=== PATIENT | female | born 1935 | race Caucasian/White ===

== ENCOUNTER 2017-02-13 07:28 | Observation (INO) | payer OTHER ==
[2017-02-13 08:18] LABS: BASO # 0.1 K/uL (0.0-0.2); BASO % 0.6 % (0.0-2.0); EOS # 0.1 K/uL (0.0-0.7); EOS % 1.1 % (0.0-4.0); HEMATOCRIT 38.9 % (34.0-47.0); LYMPH # 2.2 K/uL (1.0-4.3); LYMPH % 23.3 % (20.0-40.0); MEAN CELL VOLUME 92.5 fL (81.0-99.0); MEAN CORPUSCULAR HEMOGLOBIN 30.9 pg (27.0-31.0); MEAN CORPUSCULAR HGB CONC 33.4 g/dL (33.0-37.0); MONO # 0.7 K/uL (0.0-0.8); MONO % 7.7 % (0.0-10.0); RED CELL DISTRIBUTION WIDTH 12.9 % (11.5-14.5); WHITE BLOOD COUNT 9.5 K/uL (4.8-10.8)
[2017-02-13 08:25] LABS: CHLORIDE 98 mmol/L (98-107); POTASSIUM 3.6 mmol/L (3.6-5.2); SODIUM 137 mmol/L (132-148)
[2017-02-13 08:27] LABS: AST/SGOT 18 U/L (14-36); BILIRUBIN,TOTAL 1.2 mg/dL (0.2-1.3); CARBON DIOXIDE 26 mmol/L (22-30); GFR AFRICAN-AMERICAN > 60
[2017-02-13 08:28] LABS: ALB/GLOB RATIO 1.5 (1.0-2.1); ALKALINE PHOSPHATASE 79 U/L (38-126); ALT/SGPT 22 U/L (9-52); BLOOD UREA NITROGEN 25 mg/dL (7-17); GLUCOSE,RANDOM 116 mg/dL (65-105); TOTAL PROTEIN 7.2 g/dL (6.3-8.3)
--- NOTE | 2017-02-13 08:52 | CT ---
PROCEDURE: CT HEAD WITHOUT CONTRAST. HISTORY: dizzness COMPARISON: None available. TECHNIQUE: Axial computed tomography images were obtained through the head/brain without intravenous contrast. Radiation dose: Total exam DLP = 791.21 mGy-cm. This CT exam was performed using one or more of the following dose reduction techniques: Automated exposure control, adjustment of the mA and/or kV according to patient size, and/or use of iterative reconstruction technique. FINDINGS: HEMORRHAGE: Hyperintense oval-shaped lesion seen at the midline in the frontal region measures 21 x 14.1 millimeter. Findings could represent hemorrhage versus hemorrhagic mass. BRAIN: No mass effect or edema. No atrophy or chronic microvascular ischemic changes. VENTRICLES: Unremarkable. No hydrocephalus. CALVARIUM: Unremarkable. PARANASAL SINUSES: Small air-fluid levels seen in the right sphenoid sinus. MASTOID AIR CELLS: Unremarkable as visualized. No inflammatory changes. OTHER FINDINGS: None. IMPRESSION: High attenuation oval-shaped lesion seen at the midline in the frontal lesion measures 2.1 x 1.5 centimeter may represent a hemorrhagic mass versus less likely focal hemorrhage. Further assessment by MRI is suggested.
[2017-02-13 09:00] LABS: RBC URINE 7 /hpf (0-3); URINE BILIRUBIN NEGATIVE (NEGATIVE); URINE BLOOD 1+ (NEGATIVE); URINE COLOR Yellow (YELLOW); URINE GLUCOSE (UA) NORMAL (Normal); URINE KETONE NEGATIVE (NEGATIVE); URINE LEUKOCYTE ESTERASE NEG Leu/uL (Negative); URINE PROTEIN NEGATIVE (NEGATIVE); URINE UROBILINOGEN NORMAL mg/dL (0.2-1.0); WBC URINE 1 /hpf (0-5)
--- NOTE | 2017-02-13 10:19 | C.PDOC ---
History Of Present Illness 81-year-old female, presents to the emergency department accompanied by son who is acting as historian, with complaints of dizziness. Patient woke up this morning and had a few episodes of dizziness, when turning her head to the right. States dizziness lasts a few seconds and resolves on its own. Patient states she has had the dizziness intermittently over the past few years. Last episode was last year, she took Antivert for a few days with relief. Denies nausea/vomiting, weakness/numbness, chest pain, headache or any other associated symptoms. No other complaints at this time. Time Seen by Provider: 02/13/17 07:42 Chief Complaint (Nursing): Dizziness/Lightheaded History Per: Patient History/Exam Limitations: no limitations Onset/Duration Of Symptoms: Days Current Symptoms Are (Timing): Still Present Past Medical History Reviewed: Historical Data, Nursing Documentation, Vital Signs Vital Signs: Last Vital Signs Temp 98.2 F 02/13/17 11:47 Pulse 78 02/13/17 11:26 Resp 16 02/13/17 11:26 BP 131/58 L 02/13/17 11:26 Pulse Ox 97 02/13/17 11:26 - Medical History PMH: Anxiety, Arthritis, Bronchitis, HTN, Hypercholesterolemia Surgical History: Cholecystectomy Family History: States: Unknown Family Hx - Social History Hx Alcohol Use: No Hx Substance Use: No - Immunization History Hx Influenza Vaccination: Yes Review Of Systems Except As Marked, All Systems Reviewed And Found Negative. Constitutional: Negative for: Fever, Chills Cardiovascular: Negative for: Chest Pain Respiratory: Negative for: Shortness of Breath Gastrointestinal: Negative for: Nausea, Vomiting Neurological: Positive for: Dizziness. Negative for: Weakness, Numbness, Headache Physical Exam - Physical Exam Appears: Non-toxic, No Acute Distress Skin: Warm, Dry, No Rash Head: Atraumatic Eye(s): bilateral: Normal Inspection, PERRL, EOMI Nose: Normal Throat: Normal Neck: Normal Cardiovascular: Rhythm Regular Respiratory: Normal Breath Sounds Gastrointestinal/Abdominal: Normal Exam Back: Normal Inspection Extremity: Normal ROM ED Course And Treatment - Laboratory Results Result Diagrams: 02/13/17 08:12 02/13/17 08:12 ECG: Interpreted By Me, Viewed By Me ECG Interpretation: No Acute Changes Interpretation Of ECG: Arrhythmia Rate From EC O2 Sat by Pulse Oximetry: 95 - Radiology CXR: Interpreted by Me CXR Interpretation: Yes: No Acute Disease - CT Scan/US head Other Rad Studies (CT/US): Radiology Report Reviewed CT/US Interpretation: IMPRESSION: High attenuation oval-shaped lesion seen at the midline in the frontal lesion measures 2.1 x 1.5 centimeter may represent a hemorrhagic mass versus less likely focal hemorrhage. Further assessment by MRI is suggested. Medical Decision Making Medical Decision Making: Pt remained stable in the ED, Post CT MRI ordered however not avaible at this time No indication of acute CVA, Results of CT discussed with pt and family ie "mass" no edema around lesion no focal signs. After discussion plan is observation for MRI in am Discussed with dr Castellano who agrees wiht plan Disposition Counseled Patient/Family Regarding: Studies Performed, Diagnosis, Need For Followup - Disposition Disposition: HOSPITALIZED Disposition Time: 09:50 Condition: FAIR - Clinical Impression Clinical Impression: Dizziness, Frontal mass of brain - Scribe Statement The provider has reviewed the documentation as recorded by the Sarayibchasity Smith All medical record entries made by the Sarayibchasity were at my direction and personally dictated by me. I have reviewed the chart and agree that the record accurately reflects my personal performance of the history, physical exam, medical decision making, and the department course for this patient. I have also personally directed, reviewed, and agree with the discharge instructions and disposition. Decision To Admit - Pt Status Changed To: Hospital Disposition Of: Observation - . Bed Request Type: Regular Admitting Physician: Marianela Castellano Patient Diagnosis: Dizziness, Frontal mass of brain
--- NOTE | 2017-02-13 10:37 | CP.PCM.HP ---
<Natasha Bunn - Last Filed: 02/13/17 10:59> History of Present Illness - History of Present Illness History of Present Illness: CC: "I was very dizzy" HPI: Patient is 81 year old female with PMHx of HTN, arthritis, cataracts and hypertriglyceridemia presents with complaint of dizziness. Patient states that last night she started to experience dizziness while she was in bed. The dizziness was exacerbated when she would turn her head to the right side. She called for her son who was in the house and went to bed after the dizziness improved. The patient lives in [place] and is currently visiting her son and his family in [place]. Patient states that throughout the night she kept experiencing dizziness and this morning she was also dizzy so her son brought her to the ED. The patient states that she has had several episodes of dizziness 2-3 years ago but they resolved. Patient denies syncope, loss of consciousness, or recent head trauma. All other ROS are currently negative: Denies fever, chills , recent illness, chest pain, shortness of breath, palpitations, dysuria, hematuria, abdominal pain, diarrhea, constipation, focal weakness, change in vision, blurry vision, tinnitus, sore throat, headache, numbness/tingling in extremities, cough, and abnormal gait. PMHx: HTN, arthritis, cataracts and hypertriglyceridemia Surgical Hx: cholecystectomy Family Hx: parents of natural causes (no family hx of DM, CAD, or CVA) Social Hx: Denies EtOH use, denies tobacco use, denies illicit drug use; lives in [place] Allergies: Sulfa drugs (tremors/rash) Present on Admission - Present on Admission Any Indicators Present on Admission: No Review of Systems - Constitutional Constitutional: As Per HPI. absent: Chills, Fever - EENT Eyes: As Per HPI. absent: Blurred Vision, Change in Vision, Loss of Vision Ears: As Per HPI, Dizziness. absent: Tinnitus Nose/Mouth/Throat: As Per HPI. absent: Sore Throat - Cardiovascular Cardiovascular: As Per HPI. absent: Chest Pain, Chest Pain at Rest, Diaphoresis , Dyspnea, Lightheadedness, Palpitations, Pedal Edema - Respiratory Respiratory: As Per HPI. absent: Cough, Dyspnea, Hemoptysis, Wheezing, Chest Congestion - Gastrointestinal Gastrointestinal: As Per HPI. absent: Abdominal Pain, Bloating, Diarrhea, Nausea - Genitourinary Genitourinary: As Per HPI. absent: Change in Urinary Stream, Difficulty Urinating, Dysuria, Hematuria, Pyuria - Musculoskeletal Musculoskeletal: As Per HPI. absent: Abnormal Gait, Back Pain, Muscle Weakness , Neck Pain, Numbness, Tingling - Integumentary Integumentary: As Per HPI. absent: New Lesions, Rash - Neurological Neurological: As Per HPI, Dizziness. absent: Abnormal Gait, Abnormal Movements , Abnormal Speech, Confusion, Numbness, Frequent Falls, Headaches, Lack of Coordination, Loss of Vision, Syncope, Tingling, Tremor, Vertigo, Weakness - Psychiatric Psychiatric: As Per HPI. absent: Anxiety, Depression Past Patient History - Past Social History Smoking Status: Never Smoked - CARDIAC Hx Hypercholesterolemia: Yes Hx Hypertension: Yes - PULMONARY Hx Bronchitis: Yes - NEUROLOGICAL Hx Neurological Disorder: Yes Hx Vertigo: Yes - MUSCULOSKELETAL/RHEUMATOLOGICAL Hx Arthritis: Yes - PSYCHIATRIC Hx Anxiety: Yes Hx Substance Use: No - SURGICAL HISTORY Hx Cholecystectomy: Yes - ANESTHESIA Hx Anesthesia: Yes Hx Anesthesia Reactions: No Meds Allergies/Adverse Reactions: Allergies Allergy/AdvReac Type Severity Reaction Status Date / Time Sulfa (Sulfonamide Allergy Verified 02/13/17 07:51 Antibiotics) Physical Exam - Constitutional Appears: Non-toxic, No Acute Distress - Head Exam Head Exam: ATRAUMATIC, NORMOCEPHALIC - Eye Exam Eye Exam: EOMI, Normal appearance, PERRL. absent: Nystagmus Pupil Exam: NORMAL ACCOMODATION, PERRL - ENT Exam ENT Exam: Mucous Membranes Moist, Normal Exam - Neck Exam Neck exam: Positive for: Normal Inspection. Negative for: Lymphadenopathy - Respiratory Exam Respiratory Exam: Clear to Auscultation Bilateral, NORMAL BREATHING PATTERN. absent: Accessory Muscle Use, Chest Wall Tenderness, Decreased Breath Sounds, Prolonged Expiratory Phase, Rales, Rhonchi, Wheezes, Respiratory Distress, Stridor - Cardiovascular Exam Cardiovascular Exam: REGULAR RHYTHM, RRR, +S1, +S2. absent: Bradycardia, Tachycardia, Diastolic murmur, Irregular Rhythm, Systolic Murmur - GI/Abdominal Exam GI & Abdominal Exam: Normal Bowel Sounds, Soft. absent: Distended, Firm, Guarding, Tenderness - Extremities Exam Extremities exam: Positive for: full ROM, normal inspection, pedal pulses present. Negative for: calf tenderness, pedal edema, tenderness - Back Exam Back exam: NORMAL INSPECTION. absent: CVA tenderness (L), CVA tenderness (R) - Neurological Exam Neurological exam: Alert, CN II-XII Intact, Oriented x3 - Expanded Neurological Exam Expanded Patient oriented to: person, place, time Cranial nerves: EOM's Intact: Normal, Facial Palsey w/Forehead Movement: Normal , Facial Palsey w/o Forehead Movement: Normal, Facial Sensation: Normal, Nystagmus: Normal, Tongue Deviation: Normal Ataxia: No Cerebellar Function: Finger to Nose: Normal Upper motor neuron: Babinski Sign: Normal Sensory exam: Lower Extremity Light Touch: Normal, Upper Extremity Light Touch: Normal Neuro motor strength exam: Left Upper Extremity: 5, Right Upper Extremity: 5, Left Lower Extremity: 5, Right Lower Extremity: 5 Coma Scale Eye Opening: SPONTANEOUS Coma Scale Motor Response: OBEYS COMMANDS Coma Scale Verbal: Oriented Coma Scale Total: 15 - Psychiatric Exam Psychiatric exam: Normal Affect, Normal Mood - Skin Skin Exam: Dry, Intact, Normal Color, Warm Results - Vital Signs Recent Vital Signs: Last Vital Signs Temp 99 F 02/13/17 07:40 Pulse 83 02/13/17 07:40 Resp 16 02/13/17 07:40 BP 169/75 H 02/13/17 07:40 Pulse Ox 95 02/13/17 10:20 - Labs Result Diagrams: 02/13/17 08:12 02/13/17 08:12 Assessment & Plan - Assessment and Plan (Free Text) Assessment: 1. Cerebral hemorrhagic mass * Patient neurologically intact * CT head- Hyperintense oval-shaped lesion seen at the midline in the frontal region measures 21 x 14.1 millimeter. Findings could represent hemorrhage versus hemorrhagic mass. * Neurologist Dr Salazar consulted- help appreciated. * f/u CTA head/neck * f/u MRI Brain tomorrow morning * f/u HgA1C, lipid panel, TSH * Fall risk for dizziness 2. HTN * Tele/obs * Strict BP control: keep SBP in 130s range * Continue home meds: Dyazide 25-37.5mg PO daily, Lopressor 50mg PO BID, Norvasc 5mg PO daily * Monitor vitals q4h and adjust meds as needed 3. Hypertriglyceridemia * f/u lipid panel * Continue home med Lopid 600mg PO daily 4. Prophylactic measures * Chemical anticoagulation contraindicated due to hemorrhage * Pepcid 20mg PO BID * SCDs * PT/OT evaluation <Jian Reynolds - Last Filed: 02/13/17 15:24> Results - Vital Signs Recent Vital Signs: Last Vital Signs Temp 98.2 F 02/13/17 11:47 Pulse 78 02/13/17 11:26 Resp 16 02/13/17 11:26 BP 131/58 L 02/13/17 11:26 Pulse Ox 97 02/13/17 11:26 - Labs Result Diagrams: 02/13/17 08:12 02/13/17 08:12 Labs: Laboratory Results - last 24 hr 02/13/17 02/13/17 10:47 10:55 PT 11.9 INR 1.1 APTT 32 Triglycerides 123 Cholesterol 180 LDL Cholesterol Direct 120 HDL Cholesterol 38 TSH 3rd Generation 2.30 Attending/Attestation - Attestation I have personally seen and examined this patient.: Yes I have fully participated in the care of the patient.: Yes I have reviewed all pertinent clinical information: Yes Notes (Text): 02/13/17 14:24 Patient was seen and examined at bedside with the resident at the time of admission At this time patient denies any dizziness. CT scan of the head report reviewed. Patient will need further workup. Discussed by the resident with the neurologist. Patient will need CT angiogram of the brain. Patient will also need an MRI of the brain. I discussed the plan of care with the resident and agree with the above history and physical and assessment/plan by the resident.
[2017-02-13 10:56] LABS: INR 1.1
[2017-02-13 11:34] LABS: THYROID STIMULATING HORMONE 2.3 mIU/L (0.46-4.68)
--- NOTE | 2017-02-13 11:58 | RAD ---
HISTORY: dizzness COMPARISON: No prior. TECHNIQUE: Chest PA and lateral FINDINGS: LUNGS: No active pulmonary disease. PLEURA: No significant pleural effusion identified. No pneumothorax apparent. CARDIOVASCULAR: Normal. OSSEOUS STRUCTURES: No significant abnormalities. VISUALIZED UPPER ABDOMEN: Normal. OTHER FINDINGS: None. IMPRESSION: No active disease.
[2017-02-13] MEDS ORDERED: Iodixanol 320 MG/ML 100 ML BOTTLE IV ONE ×2 (12:43→12:58)
--- NOTE | 2017-02-13 14:52 | CT ---
PROCEDURE: CT Angiography of the Brain. HISTORY: brain hemorrhage COMPARISON: VS CT head without contrast dated 02/13/2017 TECHNIQUE: CT angiography of the intracranial arteries was performed. Coronal and sagittal maximum intensity projection reformated images were generated. This CT exam was performed using one or more of the following dose reduction techniques: Automated exposure control, adjustment of the mA and/or kV according to patient size, and/or use of iterative reconstruction technique. FINDINGS: CTA of the neck. No evidence of stenosis in the common and internal carotid arteries at the neck. The visualized portion of the aortic arch is normal in caliber. The subclavian arteries are patent. The left vertebral artery is small in size. Mild atherosclerotic disease seen. Moderate to mildly severe degenerative changes at the cervical spine associated with large osteophyte formation. There is mild anterior subluxation of C7 relative to T1. INTERNAL CEREBRAL ARTERIES: Unremarkable. The skull base, petrous, cavernous and supraclinoid segments are bilaterally widely patient. ANTERIOR CEREBRAL ARTERIES: Unremarkable. A1 and A2 segments are widely patent. Smaller distal branches unremarkable, as visualized. MIDDLE CEREBRAL ARTERIES: Unremarkable. M1 and M2 segments are widely patent. Perisylvian branches grossly symmetric. POSTERIOR CIRCULATION: Basilar Artery: Unremarkable. Distal Vertebral Arteries: Unremarkable. Posterior Cerebral Arteries: The Small size left P1 is not visualized. . Prominent left posterior communicated artery continues as left posterior cerebral artery. Posterior Inferior Cerebellar Arteries: Unremarkable. ANEURYSM/ VASCULAR MALFORMATIONS: None. OTHER FINDINGS: Mild mucosal thickening in the right sphenoid sinus. IMPRESSION: No evidence of hemodynamically significant stenosis at the carotid arteries in the neck. Small size left vertebral artery. The left P1 is not visualized. Left posterior communicated artery is prominent in size continuous as left posterior cerebral artery. Otherwise ,no evidence of significant stenosis in the intracranial arteries.
--- NOTE | 2017-02-13 20:29 | CP.PCM.CON ---
History of Present Illness - History of Present Illness History of Present Illness: Mrs. Bal is an 81-year-old woman with a past medical history of dyslipidemia and hypertension, who presented to the ED for complaints of dizziness. She states that last night, she was having trouble sleeping and her son gave her Benadryl. She attributed her dizziness to the Benadryl, but she was brought to the ED. A CT scan of the head was done and showed a midline hemorrhagic appearing mass without much mass effect or edema. The patient denied headache, nausea, vomiting, visual changes, weakness, sensory changes, balance problems or urinary/bowel incontinence. She said that she feels well and did not have any significant complaints of dizziness at this time. Review of Systems - Review of Systems All systems: reviewed and no additional remarkable complaints except Past Patient History - Past Social History Smoking Status: Never Smoked - CARDIAC Hx Hypercholesterolemia: Yes Hx Hypertension: Yes - PULMONARY Hx Bronchitis: Yes - NEUROLOGICAL Hx Neurological Disorder: Yes Hx Vertigo: Yes - MUSCULOSKELETAL/RHEUMATOLOGICAL Hx Arthritis: Yes - PSYCHIATRIC Hx Anxiety: Yes Hx Substance Use: No - SURGICAL HISTORY Hx Cholecystectomy: Yes - ANESTHESIA Hx Anesthesia: Yes Hx Anesthesia Reactions: No Meds Allergies/Adverse Reactions: Allergies Allergy/AdvReac Type Severity Reaction Status Date / Time Sulfa (Sulfonamide Allergy Verified 02/13/17 07:51 Antibiotics) - Medications Medications: Current Medications Amlodipine Besylate (Norvasc) 5 mg PO DAILY [facility] Last Admin: 02/13/17 11:42 Dose: 5 mg Famotidine (Pepcid) 20 mg PO BID [facility] Last Admin: 02/13/17 17:25 Dose: 20 mg Gemfibrozil (Lopid) 600 mg PO DAILY [facility] Last Admin: 02/13/17 11:41 Dose: 600 mg Metoprolol Tartrate (Lopressor) 50 mg PO BID [facility] Last Admin: 02/13/17 17:25 Dose: 50 mg Triamterene/HCTZ (Dyazide 25 Mg-37.5 Mg) 1 cap PO DAILY [facility] Physical Exam - Constitutional Appears: Well - Head Exam Head Exam: ATRAUMATIC, NORMAL INSPECTION, NORMOCEPHALIC - Eye Exam Eye Exam: EOMI, Normal appearance, PERRL - ENT Exam ENT Exam: Mucous Membranes Moist, Normal Exam - Neck Exam Neck exam: Positive for: Normal Inspection - Respiratory Exam Respiratory Exam: Clear to Auscultation Bilateral, NORMAL BREATHING PATTERN - Cardiovascular Exam Cardiovascular Exam: REGULAR RHYTHM, +S1, +S2 - GI/Abdominal Exam GI & Abdominal Exam: Normal Bowel Sounds, Soft. absent: Tenderness - Neurological Exam Neurological exam: Alert, CN II-XII Intact, Normal Gait, Oriented x3, Reflexes Normal - Expanded Neurological Exam Expanded Patient oriented to: person, place, time Cranial nerves: EOM's Intact: Normal, Facial Sensation: Normal, Nystagmus: Normal Ataxia: No Cerebellar Function: Finger to Nose: Normal, Heel to [place]: Normal, Romberg: Normal Upper motor neuron: Babinski Sign: Normal Sensory exam: Lower Extremity 2 Point Discrimination: Normal, Lower Extremity Light Touch: Normal, Lower Extremity Pin Prick: Normal, Lower Extremity Temperature: Normal, Upper Extremity 2 Point Discrimination: Normal, Upper Extremity Light Touch: Normal, Upper Extremity Pin Prick: Normal, Upper Extremity Temperature: Normal Neuro motor strength exam: Left Upper Extremity: 5, Right Upper Extremity: 5, Left Lower Extremity: 5, Right Lower Extremity: 5 DTR: Achilles Tendon Left: 2+, Achilles Tendon Right: 2+, Bicep Left: 2+, Bicep Right: 2+, Brachioradialis Left: 2+, Brachioradialis Right: 2+, Patellar Left: 2 +, Patellar Right: 2+, Tricep Left: 2+, Tricep Right: 2+ - Psychiatric Exam Psychiatric exam: Normal Affect, Normal Mood - Skin Skin Exam: Dry, Intact, Normal Color, Warm Results - Vital Signs Recent Vital Signs: Last Vital Signs Temp 98.7 F 02/13/17 16:00 Pulse 84 02/13/17 16:00 Resp 20 02/13/17 16:00 BP 134/71 02/13/17 16:00 Pulse Ox 95 02/13/17 17:39 - Labs Result Diagrams: 02/13/17 08:12 02/13/17 08:12 Labs: Laboratory Results - last 24 hr 02/13/17 02/13/17 10:47 10:55 PT 11.9 INR 1.1 APTT 32 Triglycerides 123 Cholesterol 180 LDL Cholesterol Direct 120 HDL Cholesterol 38 TSH 3rd Generation 2.30 - Imaging and Cardiology CT scan - head Status: Image reviewed by me, Report reviewed by me (CT of the head showed a midline mass with hyperdensity and possible hemorrhagic products. There was no mass effect and it appeared stable. The CTA of the head and neck did not show any anuerysm, AVM or cavernous malformation.) Assessment & Plan (1) Dizziness Assessment and Plan: The appearance of the mass and lack of vascular involvement on the CTA is most consistent with either a meningioma with hemorrhagic components, or another hemorrhagic mass. The patient is clinically well and does not have any significant complaints at this time. I recommend continuing BP support to maintain normotension, avoid antiplatelet or anticoagulants for now (use compression stockings for DVT Px), neuro-checks Q4 hours, PT/OT (if needed), obtain an MRI of the brain with and without contrast for further evaluation and depending on the results, consider consulting neurosurgery for follow-up. Status: Acute Priority: High (2) Frontal mass of brain Status: Acute
[2017-02-14 07:30] LABS: BASO % 0.5 % (0.0-2.0); EOS # 0.1 K/uL (0.0-0.7); EOS % 1.8 % (0.0-4.0); HEMATOCRIT 36.3 % (34.0-47.0); LYMPH # 2.1 K/uL (1.0-4.3); LYMPH % 27.9 % (20.0-40.0); MEAN CELL VOLUME 92.4 fL (81.0-99.0); MEAN CORPUSCULAR HEMOGLOBIN 31.1 pg (27.0-31.0); MEAN CORPUSCULAR HGB CONC 33.7 g/dL (33.0-37.0); MEAN PLATELET VOLUME 9.5 fL (7.2-11.7); MONO # 0.7 K/uL (0.0-0.8); MONO % 10.1 % (0.0-10.0); RED CELL DISTRIBUTION WIDTH 13.1 % (11.5-14.5); WHITE BLOOD COUNT 7.4 K/uL (4.8-10.8)
--- NOTE | 2017-02-14 07:46 | CP.PCM.PN ---
<NailaCarolina - Last Filed: 02/14/17 15:17> Subjective - Date & Time of Evaluation Date of Evaluation: 02/14/17 Time of Evaluation: 09:15 - Subjective Subjective: PGY1 Medicine note for Dr. Barber Pt seen and examined at bedside. Nursing reports no adverse events overnight. Today, pt is resting comfortably and states she has no pain. She states that she feels dizzy when she moves her head or when she gets out of bed. She says that the dizziness feels more like the room is spinning than light headedness. She states that she never feels like she will pass out or fall down and that she usually lays down when the dizziness is bad and that helps. Pt denies headache, chest pain, palpitations, SOB, cough, abdominal pain, nausea, vomiting , diarrhea or constipation, dysuria, pain/swelling in her legs bilaterally, focal numbness/tingling. She disclosed that 1 year ago she was given an Rx for antivert by her PMD which she has no longer been taking. Objective - Vital Signs/Intake and Output Vital Signs (last 24 hours): Temp Pulse Resp BP Pulse Ox 99.4 F 80 20 129/67 95 02/14/17 00:17 02/14/17 00:17 02/14/17 00:17 02/14/17 00:17 02/14/17 00:17 Intake and Output: 02/14/17 02/14/17 06:59 18:59 Intake Total 200 Balance 200 - Medications Medications: Current Medications Amlodipine Besylate (Norvasc) 5 mg PO DAILY [facility] Last Admin: 02/13/17 11:42 Dose: 5 mg Famotidine (Pepcid) 20 mg PO BID [facility] Last Admin: 02/13/17 17:25 Dose: 20 mg Gemfibrozil (Lopid) 600 mg PO DAILY [facility] Last Admin: 02/13/17 11:41 Dose: 600 mg Metoprolol Tartrate (Lopressor) 50 mg PO BID [facility] Last Admin: 02/13/17 17:25 Dose: 50 mg Triamterene/HCTZ (Dyazide 25 Mg-37.5 Mg) 1 cap PO DAILY [facility] - Labs Labs: 02/14/17 07:12 PT 11.9 SECONDS (9.7-12.2) 02/13/17 10:55 INR 1.1 02/13/17 10:55 APTT 32 SECONDS (21-34) 02/13/17 10:55 - Constitutional Appears: Non-toxic, No Acute Distress - Head Exam Head Exam: NORMAL INSPECTION - Eye Exam Eye Exam: EOMI, Normal appearance, PERRL. absent: Conjunctival injection, Scleral icterus Pupil Exam: NORMAL ACCOMODATION - ENT Exam ENT Exam: Mucous Membranes Moist - Neck Exam Neck Exam: Normal Inspection. absent: Tenderness - Respiratory Exam Respiratory Exam: Clear to Ausculation Bilateral, NORMAL BREATHING PATTERN. absent: Accessory Muscle Use, Rales, Rhonchi, Wheezes, Respiratory Distress - Cardiovascular Exam Cardiovascular Exam: REGULAR RHYTHM, RRR, +S1, +S2 - GI/Abdominal Exam GI & Abdominal Exam: Soft, Normal Bowel Sounds. absent: Firm, Guarding, Rigid, Tenderness - Extremities Exam Extremities Exam: Normal Capillary Refill, Normal Inspection. absent: Pedal Edema, Tenderness - Back Exam Back Exam: NORMAL INSPECTION. absent: rash noted - Neurological Exam Neurological Exam: Alert, Awake, CN II-XII Intact, Oriented x3 - Psychiatric Exam Psychiatric exam: Normal Affect, Normal Mood - Skin Skin Exam: Dry, Intact, Normal Color, Warm Assessment and Plan - Assessment and Plan (Free Text) Assessment: 81 year old female with PMHx of HTN, arthritis, cataracts and hypertriglyceridemia presents with complaint of dizziness Plan: Cerebral hemorrhagic mass * Likely meningioma * Patient neurologically intact * CT head- Hyperintense oval-shaped lesion seen at the midline in the frontal region measures 21 x 14.1 millimeter. Findings could represent hemorrhage versus hemorrhagic mass. * CTA head/neck: no evidence of hemodynamically significant stenosis at the carotid A in the neck. Small size left vertebral artery. Left posterior communicated artery is prominent in size continuous as left posterior cerebral artery. no evidence of significant stenosis in intracranial arteries. * MRI Brain: elliptical shaped mass density within the interhemispheric fissure of near the vertex consistent with meningioma. The lesion does exert minimal mass effect on the adjacent cortical surfaces b/l. Mild chronic white matter ischemic changes. No evidence of acute hemorrhage or infarct. * HgA1C 5.6 * Lipid panel WNL * TSH 2.3 * Fall risk for dizziness * Neurologist Dr Salazar * Neurosurgery Dr Trammell Positional Vertigo * Meclizine 25mg po q6 PRN dizziness * f/u orthostatics HTN * Tele/obs * Strict BP control: keep SBP in 130s range * Dyazide 25-37.5mg PO daily * Lopressor 50mg PO BID * Norvasc 5mg PO daily * Monitor vitals q4h and adjust meds as needed Hypertriglyceridemia * f/u lipid panel * Lopid 600mg PO daily Prophylactic measures * Chemical anticoagulation contraindicated due to hemorrhage * Pepcid 20mg PO BID * SCDs * PT/OT evaluation * Heart healthy diet Plan discussed with Dr. Sunil Yoo PGY1 <Jet Barber - Last Filed: 03/18/17 13:22> Objective - Vital Signs/Intake and Output Vital Signs (last 24 hours): Temp Pulse Resp BP Pulse Ox 99 F 61 20 148/88 96 02/15/17 04:10 02/15/17 12:18 02/15/17 04:10 02/15/17 04:10 02/14/17 23:35 - Labs Labs: 02/15/17 07:40 02/15/17 07:40 PT 11.9 SECONDS (9.7-12.2) 02/13/17 10:55 INR 1.1 02/13/17 10:55 APTT 32 SECONDS (21-34) 02/13/17 10:55 Attending/Attestation - Attestation I have personally seen and examined this patient.: Yes I have fully participated in the care of the patient.: Yes I have reviewed all pertinent clinical information, including history, physical exam and plan: Yes Notes (Text): Patient Seen and examined with the resident. Agree with the resident's evaluation, assessment and plan. 81 year old female with PMHx of HTN, arthritis, cataracts and hypertriglyceridemia presents with complaint of dizziness Plan: Cerebral hemorrhagic mass Positional Vertigo
[2017-02-14 07:55] LABS: CHLORIDE 97 mmol/L (98-107)
[2017-02-14 07:56] LABS: POTASSIUM 3.6 mmol/L (3.6-5.2); SODIUM 136 mmol/L (132-148)
[2017-02-14 07:58] LABS: ALB/GLOB RATIO 1.3 (1.0-2.1); ALKALINE PHOSPHATASE 65 U/L (38-126); AST/SGOT 18 U/L (14-36); BILIRUBIN,TOTAL 0.9 mg/dL (0.2-1.3); BLOOD UREA NITROGEN 21 mg/dL (7-17); CARBON DIOXIDE 29 mmol/L (22-30); GFR AFRICAN-AMERICAN > 60; GLUCOSE,RANDOM 107 mg/dL (65-105); TOTAL PROTEIN 6.7 g/dL (6.3-8.3)
[2017-02-14 07:59] LABS: ALT/SGPT 21 U/L (9-52); CALCIUM 8.7 mg/dl (8.6-10.4)
[2017-02-14] MEDS ORDERED: Gadodiamide 287 MG/ML VIAL (15ML) IV ONE (10:01)
[2017-02-14] MEDS: hydroCHLOROthiazide-Triamterene 25 mg-37.5 mg Cap UD PO SCH (10:51)
--- NOTE | 2017-02-14 10:52 | MRI ---
PROCEDURE: MRI of the brain dated 02/14/2017 HISTORY: cerebral hemorrhagic mass COMPARISON: Comparison made with CT scan brain dated 02/13/2017 TECHNIQUE: Multiplanar, multisequence MR images of the brain were obtained before and following intravenous injection of approximately 13 cc of Omniscan contrast material. . FINDINGS: HEMORRHAGE: No evidence of acute parenchymal, subarachnoid or extra-axial hemorrhage. No definitive evidence of hemosiderin deposition identified within brain the substance of the brain or cortical surfaces on gradient echo weighted sequence DWI: No evidence of an acute or early subacute infarction. BRAIN PARENCHYMA: Re- demonstrated is a homogeneously enhancing elliptical shaped mass density within the interhemispheric fissure near the vertex that measures approximately 17.7 AP x 17.1 cc x14.9 trans most consistent with a meningioma. The lesion does exert minimal mass effect on the adjacent cerebral cortices bilaterally. Mild diffuse/confluent periventricular white matter ischemic changes are present. ENHANCEMENT: No additional enhancing extra-axial masses or collections. No enhancing parenchymal lesions. VENTRICLES: Mild age-appropriate volume loss. CRANIUM: No grossly calvarial abnormalities. ORBITS: Orbits and contents grossly unremarkable. PARANASAL SINUSES/MASTOIDS: Minor mucosal thickening seen right chamber sphenoid sinus and several ethmoid air cells. VASCULAR SYSTEM: Visualized major vascular flow voids at skull base are patent. OTHER FINDINGS: None . IMPRESSION: Re- demonstrated is elliptical shaped mass density within the interhemispheric fissure of near the vertex consistent with meningioma. The lesion does exert minimal mass effect on the adjacent cortical surfaces bilaterally. Mild chronic white matter ischemic changes. No evidence of acute intracranial hemorrhage or infarct.
[2017-02-14 16:07] VITALS: O2SAT 96
[2017-02-15 03:13] VITALS: RESP 20
[2017-02-15 04:29] VITALS: BP 148/88; TEMP 99
--- NOTE | 2017-02-15 07:02 | CP.PCM.PN ---
Objective - Vital Signs/Intake and Output Vital Signs (last 24 hours): Temp Pulse Resp BP Pulse Ox 99 F 75 20 148/88 96 02/15/17 04:10 02/15/17 04:10 02/15/17 04:10 02/15/17 04:10 02/14/17 23:35 Intake and Output: 02/15/17 02/15/17 06:59 18:59 Output Total 100 Balance -100 - Medications Medications: Current Medications Amlodipine Besylate (Norvasc) 5 mg PO DAILY [facility] Last Admin: 02/14/17 10:50 Dose: 5 mg Famotidine (Pepcid) 20 mg PO BID [facility] Last Admin: 02/14/17 18:01 Dose: 20 mg Gemfibrozil (Lopid) 600 mg PO DAILY [facility] Last Admin: 02/14/17 10:51 Dose: 600 mg Meclizine HCl (Antivert) 25 mg PO Q6 PRN PRN Reason: Dizziness Metoprolol Tartrate (Lopressor) 50 mg PO BID [facility] Last Admin: 02/14/17 18:02 Dose: 50 mg Triamterene/HCTZ (Dyazide 25 Mg-37.5 Mg) 1 cap PO DAILY [facility] Last Admin: 02/14/17 10:51 Dose: 1 cap - Labs Labs: 02/14/17 07:12 02/14/17 07:12 PT 11.9 SECONDS (9.7-12.2) 02/13/17 10:55 INR 1.1 02/13/17 10:55 APTT 32 SECONDS (21-34) 02/13/17 10:55
[2017-02-15 08:20] LABS: BASO % 0.4 % (0.0-2.0); EOS # 0.2 K/uL (0.0-0.7); EOS % 2.6 % (0.0-4.0); HEMATOCRIT 37.6 % (34.0-47.0); LYMPH # 2.3 K/uL (1.0-4.3); LYMPH % 30.5 % (20.0-40.0); MEAN CELL VOLUME 92.8 fL (81.0-99.0); MEAN CORPUSCULAR HEMOGLOBIN 30.9 pg (27.0-31.0); MEAN CORPUSCULAR HGB CONC 33.2 g/dL (33.0-37.0); MEAN PLATELET VOLUME 9.3 fL (7.2-11.7); MONO # 0.8 K/uL (0.0-0.8); MONO % 10.2 % (0.0-10.0); RED CELL DISTRIBUTION WIDTH 12.9 % (11.5-14.5); WHITE BLOOD COUNT 7.5 K/uL (4.8-10.8)
[2017-02-15 08:29] LABS: CHLORIDE 99 mmol/L (98-107); POTASSIUM 3.7 mmol/L (3.6-5.2); SODIUM 137 mmol/L (132-148)
[2017-02-15 08:31] LABS: AST/SGOT 20 U/L (14-36); BILIRUBIN,TOTAL 0.8 mg/dL (0.2-1.3); CARBON DIOXIDE 27 mmol/L (22-30); GFR AFRICAN-AMERICAN > 60
[2017-02-15 08:32] LABS: ALB/GLOB RATIO 1.3 (1.0-2.1); ALKALINE PHOSPHATASE 62 U/L (38-126); ALT/SGPT 18 U/L (9-52); BLOOD UREA NITROGEN 24 mg/dL (7-17); GLUCOSE,RANDOM 110 mg/dL (65-105); TOTAL PROTEIN 6.9 g/dL (6.3-8.3)
[2017-02-15 08:33] LABS: CALCIUM 8.5 mg/dl (8.6-10.4); MAGNESIUM 1.9 mg/dL (1.6-2.3); PHOSPHOROUS 4.2 mg/dL (2.5-4.5)
--- NOTE | 2017-02-15 09:45 | CARD ---
APPROVED REPORT EKG Measurement Heart Cooc13SBUS MA 160P-1 [id number] <Conclusion> Sinus rhythm with marked sinus arrhythmia Nonspecific ST abnormality Abnormal ECG
[2017-02-15] MEDS: hydroCHLOROthiazide-Triamterene 25 mg-37.5 mg Cap UD PO SCH (10:06)
--- NOTE | 2017-02-15 10:57 | CP.PCM.DIS ---
<Carolina Yoo - Last Filed: 02/15/17 17:21> Provider - Provider Date of Admission: 02/13/17 09:54 Attending physician: Jet Barber MD Consults: Dr. Salazar Neurology Dr. Quinonez Neurosurgery Time Spent in preparation of Discharge (in minutes): 45 Hospital Course - Lab Results Lab Results: Most Recent Lab Values WBC 7.5 K/uL (4.8-10.8) 02/15/17 07:40 RBC 4.05 Mil/uL (3.80-5.20) 02/15/17 07:40 Hgb 12.5 g/dL (11.0-16.0) 02/15/17 07:40 Hct 37.6 % (34.0-47.0) 02/15/17 07:40 MCV 92.8 fL (81.0-99.0) 02/15/17 07:40 MCH 30.9 pg (27.0-31.0) 02/15/17 07:40 MCHC 33.2 g/dL (33.0-37.0) 02/15/17 07:40 RDW 12.9 % (11.5-14.5) 02/15/17 07:40 Plt Count 248 K/uL (130-400) 02/15/17 07:40 MPV 9.3 fL (7.2-11.7) 02/15/17 07:40 Neut % (Auto) 56.3 % (50.0-75.0) 02/15/17 07:40 Lymph % (Auto) 30.5 % (20.0-40.0) 02/15/17 07:40 Miner % (Auto) 10.2 % (0.0-10.0) H 02/15/17 07:40 Eos % (Auto) 2.6 % (0.0-4.0) 02/15/17 07:40 Baso % (Auto) 0.4 % (0.0-2.0) 02/15/17 07:40 Neut # 4.2 K/uL (1.8-7.0) 02/15/17 07:40 Lymph # 2.3 K/uL (1.0-4.3) 02/15/17 07:40 Miner # 0.8 K/uL (0.0-0.8) 02/15/17 07:40 Eos # 0.2 K/uL (0.0-0.7) 02/15/17 07:40 Baso # 0.0 K/uL (0.0-0.2) 02/15/17 07:40 PT 11.9 SECONDS (9.7-12.2) 02/13/17 10:55 INR 1.1 02/13/17 10:55 APTT 32 SECONDS (21-34) 02/13/17 10:55 Sodium 137 mmol/L (132-148) 02/15/17 07:40 Potassium 3.7 mmol/L (3.6-5.2) 02/15/17 07:40 Chloride 99 mmol/L (98-107) 02/15/17 07:40 Carbon Dioxide 27 mmol/L (22-30) 02/15/17 07:40 Anion Gap 15 (10-20) 02/15/17 07:40 BUN 24 mg/dL (7-17) H 02/15/17 07:40 Creatinine 0.9 MG/DL (0.7-1.2) 02/15/17 07:40 Est GFR ( Amer) > 60 02/15/17 07:40 Est GFR (Non-Af Amer) 60 02/15/17 07:40 POC Glucose (mg/dL) 121 mg/dL (65-110) H 02/13/17 07:44 Random Glucose 110 mg/dL (65-105) H 02/15/17 07:40 Hemoglobin A1c 5.6 % (4.2-6.5) 02/13/17 10:47 Calcium 8.5 mg/dl (8.6-10.4) L 02/15/17 07:40 Phosphorus 4.2 mg/dL (2.5-4.5) 02/15/17 07:40 Magnesium 1.9 mg/dL (1.6-2.3) 02/15/17 07:40 Total Bilirubin 0.8 mg/dL (0.2-1.3) 02/15/17 07:40 AST 20 U/L (14-36) 02/15/17 07:40 ALT 18 U/L (9-52) 02/15/17 07:40 Alkaline Phosphatase 62 U/L (38-126) 02/15/17 07:40 Troponin I < 0.0120 ng/mL (0.00-0.120) 02/13/17 08:12 Total Protein 6.9 g/dL (6.3-8.3) 02/15/17 07:40 Albumin 3.9 g/dL (3.5-5.0) 02/15/17 07:40 Globulin 3.0 gm/dL (2.2-3.9) 02/15/17 07:40 Albumin/Globulin Ratio 1.3 (1.0-2.1) 02/15/17 07:40 Triglycerides 123 mg/dL (0-149) 02/13/17 10:47 Cholesterol 180 mg/dL (0-199) 02/13/17 10:47 LDL Cholesterol Direct 120 mg/dL (0-129) 02/13/17 10:47 HDL Cholesterol 38 mg/dL (30-70) 02/13/17 10:47 TSH 3rd Generation 2.30 mIU/L (0.46-4.68) 02/13/17 10:47 Urine Color Yellow (YELLOW) 02/13/17 08:43 Urine Clarity Clear (Clear) 02/13/17 08:43 Urine pH 6.0 (5.0-8.0) 02/13/17 08:43 Ur Specific Dresher 1.016 (1.003-1.030) 02/13/17 08:43 Urine Protein Negative mg/dL (NEGATIVE) 02/13/17 08:43 Urine Glucose (UA) Normal mg/dL (Normal) 02/13/17 08:43 Urine Ketones Negative mg/dL (NEGATIVE) 02/13/17 08:43 Urine Blood 1+ (NEGATIVE) H 02/13/17 08:43 Urine Nitrate Negative (NEGATIVE) 02/13/17 08:43 Urine Bilirubin Negative (NEGATIVE) 02/13/17 08:43 Urine Urobilinogen Normal mg/dL (0.2-1.0) 02/13/17 08:43 Ur Leukocyte Esterase Neg Billy/uL (Negative) 02/13/17 08:43 Urine WBC (Auto) 1 /hpf (0-5) 02/13/17 08:43 Urine RBC (Auto) 7 /hpf (0-3) H 02/13/17 08:43 Ur Squamous Epith Cells 2 /hpf (0-5) 02/13/17 08:43 - Hospital Course Hospital Course: Upon Admission: 81 year old female with PMHx of HTN, arthritis, cataracts and hypertriglyceridemia presents with complaint of dizziness. The dizziness was exacerbated when she would turn her head to the right side. Patient stated that throughout the night prior to admission she kept experiencing dizziness and the morning of it worsened and she came to the ER. Patient denies syncope, loss of consciousness, or recent head trauma. All other ROS negative. Patient was admitted to TELE floor. CT head showed hyperintense oval-shaped lesion seen at the midline in the frontal region measures 21 x 14.1 millimeter. Findings could represent hemorrhage versus hemorrhagic mass. Neurologist Dr. Salazar was consulted. CTA head/neck showed no evidence of hemodynamically significant stenosis at the carotid A in the neck. Small size left vertebral artery. Left posterior communicated artery is prominent in size continuous as left posterior cerebral artery. no evidence of significant stenosis in intracranial arteries. Patient had an MRI brain that showed elliptical shaped mass density within the interhemispheric fissure of near the vertex consistent with meningioma. The lesion does exert minimal mass effect on the adjacent cortical surfaces b/l. Mild chronic white matter ischemic changes. No evidence of acute hemorrhage or infarct. Neurologist Dr. Quinonez was consulted who deemed no surgical intervention. Patient was started on meclizine PRN and on the day of discharge her dizziness had resolved and she was deemed medically stable for discharge. 1) Meningioma: repeat MRI in 6 months and f/u with neurosurgery Dr. Quinonez 2) Positional vertigo: f/u with ENT outpatient and continue Meclizine PRN 3) HTN: continue home meds 4) Hypertriglyceridemia: continue home meds Upon Discharge: Patiet stable for discharge home as per hospitalist Dr. Barber, neurology Dr. Salazar, and neurosurgery Dr. Quinonez. Patient to resume home medications and to take following medications as prescribed: -Norvasc 5mg po daily Disp#30 -Gemfibrozil 600mg po daily Disp#30 -Meclizine 25mg po q6h prn dizziness Disp#120 -Lopressor 50mg po bid Disp#60 -Dyazide 25mg-37.5mg 1 cap po daily Disp#30 Patient to follow up with PMD within 1 week. Patient also recommended to follow up with an ENT specialist within 10 days and neurology within 2 weeks. Patient has also been recommended to follow up brain MRI in 6 months and with neurosurgery within 6 months. If symptoms persist or worsen patient to visit ED immediately. Instructions discussed in detail with patient who understands and agrees. Discharge Exam - Head Exam Head Exam: ATRAUMATIC, NORMAL INSPECTION, NORMOCEPHALIC - Eye Exam Eye Exam: EOMI, Normal appearance, PERRL. absent: Conjunctival injection, Scleral icterus Pupil Exam: NORMAL ACCOMODATION - ENT Exam ENT Exam: Mucous Membranes Moist - Neck Exam Neck exam: Full Rom, Normal Inspection - Respiratory Exam Respiratory Exam: Clear to PA & Lateral, NORMAL BREATHING PATTERN, UNREMARKABLE. absent: Accessory Muscle Use, Rales, Rhonchi, Wheezes - Cardiovascular Exam Cardiovascular Exam: REGULAR RHYTHM, RRR, +S1, +S2. absent: Systolic Murmur - GI/Abdominal Exam GI & Abdominal Exam: Normal Bowel Sounds, Soft. absent: Firm, Guarding, Rigid, Tenderness - Extremities Exam Extremities exam: normal capillary refill, normal inspection, pedal pulses present - Back Exam Back exam: NORMAL INSPECTION. absent: rash noted, tenderness - Neurological Exam Neurological exam: Alert, CN II-XII Intact, Normal Gait, Oriented x3 - Psychiatric Exam Psychiatric exam: Normal Affect, Normal Mood - Skin Skin Exam: Dry, Intact, Normal Color, Warm Discharge Plan - Discharge Medications Prescriptions: amLODIPine [Norvasc] 1 tab PO DAILY #30 Gemfibrozil 600 mg PO DAILY #30 Meclizine [Meclizine*] 25 mg PO Q6 PRN #120 tab PRN Reason: Dizziness Metoprolol Tartrate [Lopressor] 1 tab PO BID #60 Triamterene-Hctz 37.5-25 mg Tb 1 tab PO DAILY #30 - Follow Up Plan Condition: FAIR Disposition: HOME/ ROUTINE Instructions: Metoprolol (By mouth), Triamterene/Hydrochlorothiazide (By mouth) , Gemfibrozil (By mouth), Meclizine (By mouth), Amlodipine (By mouth), Heart Healthy Diet (DC), Hypertension (DC), Dizziness (GEN), Hyperlipidemia (DC) Additional Instructions: Patiet stable for discharge home as per hospitalist Dr. Barber, neurology Dr. Salazar, and neurosurgery Dr. Quinonez. Patient to resume home medications and to take following medications as prescribed: -Norvasc 5mg po daily Disp#30 -Gemfibrozil 600mg po daily Disp#30 -Meclizine 25mg po q6h prn dizziness Disp#120 -Lopressor 50mg po bid Disp#60 -Dyazide 25mg-37.5mg 1 cap po daily Disp#30 Patient to follow up with PMD within 1 week. Patient also recommended to follow up with an ENT specialist within 10 days and neurology within 2 weeks. Patient has also been recommended to follow up brain MRI in 6 months and with neurosurgery within 6 months. If symptoms persist or worsen patient to visit ED immediately. Instructions discussed in detail with patient who understands and agrees. Referrals: Jose Quinonez MD [Staff Provider] - 1 Week <Jet Barber - Last Filed: 03/18/17 14:08> Provider - Provider Date of Admission: 02/13/17 09:54 Attending physician: Marianela Castellano [facility] - Lab Results Lab Results: Most Recent Lab Values WBC 7.5 K/uL (4.8-10.8) 02/15/17 07:40 RBC 4.05 Mil/uL (3.80-5.20) 02/15/17 07:40 Hgb 12.5 g/dL (11.0-16.0) 02/15/17 07:40 Hct 37.6 % (34.0-47.0) 02/15/17 07:40 MCV 92.8 fL (81.0-99.0) 02/15/17 07:40 MCH 30.9 pg (27.0-31.0) 02/15/17 07:40 MCHC 33.2 g/dL (33.0-37.0) 02/15/17 07:40 RDW 12.9 % (11.5-14.5) 02/15/17 07:40 Plt Count 248 K/uL (130-400) 02/15/17 07:40 MPV 9.3 fL (7.2-11.7) 02/15/17 07:40 Neut % (Auto) 56.3 % (50.0-75.0) 02/15/17 07:40 Lymph % (Auto) 30.5 % (20.0-40.0) 02/15/17 07:40 Miner % (Auto) 10.2 % (0.0-10.0) H 02/15/17 07:40 Eos % (Auto) 2.6 % (0.0-4.0) 02/15/17 07:40 Baso % (Auto) 0.4 % (0.0-2.0) 02/15/17 07:40 Neut # 4.2 K/uL (1.8-7.0) 02/15/17 07:40 Lymph # 2.3 K/uL (1.0-4.3) 02/15/17 07:40 Miner # 0.8 K/uL (0.0-0.8) 02/15/17 07:40 Eos # 0.2 K/uL (0.0-0.7) 02/15/17 07:40 Baso # 0.0 K/uL (0.0-0.2) 02/15/17 07:40 PT 11.9 SECONDS (9.7-12.2) 02/13/17 10:55 INR 1.1 02/13/17 10:55 APTT 32 SECONDS (21-34) 02/13/17 10:55 Sodium 137 mmol/L (132-148) 02/15/17 07:40 Potassium 3.7 mmol/L (3.6-5.2) 02/15/17 07:40 Chloride 99 mmol/L (98-107) 02/15/17 07:40 Carbon Dioxide 27 mmol/L (22-30) 02/15/17 07:40 Anion Gap 15 (10-20) 02/15/17 07:40 BUN 24 mg/dL (7-17) H 02/15/17 07:40 Creatinine 0.9 MG/DL (0.7-1.2) 02/15/17 07:40 Est GFR ( Amer) > 60 02/15/17 07:40 Est GFR (Non-Af Amer) 60 02/15/17 07:40 POC Glucose (mg/dL) 121 mg/dL (65-110) H 02/13/17 07:44 Random Glucose 110 mg/dL (65-105) H 02/15/17 07:40 Hemoglobin A1c 5.6 % (4.2-6.5) 02/13/17 10:47 Calcium 8.5 mg/dl (8.6-10.4) L 02/15/17 07:40 Phosphorus 4.2 mg/dL (2.5-4.5) 02/15/17 07:40 Magnesium 1.9 mg/dL (1.6-2.3) 02/15/17 07:40 Total Bilirubin 0.8 mg/dL (0.2-1.3) 02/15/17 07:40 AST 20 U/L (14-36) 02/15/17 07:40 ALT 18 U/L (9-52) 02/15/17 07:40 Alkaline Phosphatase 62 U/L (38-126) 02/15/17 07:40 Troponin I < 0.0120 ng/mL (0.00-0.120) 02/13/17 08:12 Total Protein 6.9 g/dL (6.3-8.3) 02/15/17 07:40 Albumin 3.9 g/dL (3.5-5.0) 02/15/17 07:40 Globulin 3.0 gm/dL (2.2-3.9) 02/15/17 07:40 Albumin/Globulin Ratio 1.3 (1.0-2.1) 02/15/17 07:40 Triglycerides 123 mg/dL (0-149) 02/13/17 10:47 Cholesterol 180 mg/dL (0-199) 02/13/17 10:47 LDL Cholesterol Direct 120 mg/dL (0-129) 02/13/17 10:47 HDL Cholesterol 38 mg/dL (30-70) 02/13/17 10:47 TSH 3rd Generation 2.30 mIU/L (0.46-4.68) 02/13/17 10:47 Urine Color Yellow (YELLOW) 02/13/17 08:43 Urine Clarity Clear (Clear) 02/13/17 08:43 Urine pH 6.0 (5.0-8.0) 02/13/17 08:43 Ur Specific Dresher 1.016 (1.003-1.030) 02/13/17 08:43 Urine Protein Negative mg/dL (NEGATIVE) 02/13/17 08:43 Urine Glucose (UA) Normal mg/dL (Normal) 02/13/17 08:43 Urine Ketones Negative mg/dL (NEGATIVE) 02/13/17 08:43 Urine Blood 1+ (NEGATIVE) H 02/13/17 08:43 Urine Nitrate Negative (NEGATIVE) 02/13/17 08:43 Urine Bilirubin Negative (NEGATIVE) 02/13/17 08:43 Urine Urobilinogen Normal mg/dL (0.2-1.0) 02/13/17 08:43 Ur Leukocyte Esterase Neg Billy/uL (Negative) 02/13/17 08:43 Urine WBC (Auto) 1 /hpf (0-5) 02/13/17 08:43 Urine RBC (Auto) 7 /hpf (0-3) H 02/13/17 08:43 Ur Squamous Epith Cells 2 /hpf (0-5) 02/13/17 08:43 Attending/Attestation - Attestation I have personally seen and examined this patient.: Yes I have fully participated in the care of the patient.: Yes I have reviewed all pertinent clinical information, including history, physical exam and plan: Yes Notes (Text): Patient Seen and examined with the resident. Agree with the resident's evaluation, assessment and plan. 81 year old female with PMHx of HTN, arthritis, cataracts and hypertriglyceridemia presents with complaint of dizzinesslikely due to BPV Unlikely due to Meningioma: repeat MRI in 6 months and f/u with neurosurgery Dr. Quinonez Positional vertigo: f/u with ENT outpatient and continue Meclizine PRN HTN: continue home meds Hypertriglyceridemia: continue home meds
[2017-02-15 12:05] VITALS: PULSE 61
--- NOTE | 2017-02-15 13:20 | CON ---
DATE: 02/15/2017 This is an 81-year-old lady that was admitted to the hospital predominantly for vertigo. She was adryan anton on meclizine, is actually doing better. In the course of her workup, she had a CT of the brain f ollowed by an MRI which documented a falx meningioma. Neurosurgical evaluation was requested. Speaking with the patient today, she clearly is asymptomatic from this lesion, really reports no symp toms other than classic vertigo. PAST MEDICAL HISTORY, MEDICATIONS, ALLERGIES, SOCIAL HISTORY: All reviewed in the EMR. PHYSICAL EXAMINATION: NEUROLOGIC: She is bright, awake and alert, fully oriented. Follows all commands. Pupils are equal and reactive. EOMs are full. No drift, 5/5 strength throughout. Sensory exam is grossly intact. The CT and the MRI both confirmed the presence of a relatively small typical meningioma off predomina ntly the inferior falx. There is really no significant mass effect. IMPRESSION AND PLAN: I reassured the patient that undoubtedly this is a benign tumor. It is quite s mall. I do not believe that it is causing her any symptoms and I believe in all likelihood there is a very slim chance this will ever require surgical intervention. My recommendation would be followup MRI in 6 months just to ensure this is not growing. I will follo w her up in my office. Thank you for the courtesy of this consultation. Jose Quinonez MD cc: [id number] TT: 02/15/2017 13:20:15 Confirmation # [id number] Dictation # [id number]
== END 2017-02-15 13:00 | disposition home or self-care (01) ==
LOC: C.ER 07:28 → C.9E 09:54 → C.6T 11:41
PROVIDERS: ADMIT Hospitalist; ATTEND Hospitalist
DX: D32.9 Benign neoplasm of meninges, unspecified (principal); E78.00 Pure hypercholesterolemia, unspecified; E78.5 Hyperlipidemia, unspecified; I10 Essential (primary) hypertension; Z91.81 History of falling
CPT/HCPCS: 36415; 70450; 70496; 70498; 70553; 71020; 80053; 80061; 81001; 82948; 83036; 83735; 84100; 84443; 84484; 85025; 85610; 85730; 93005; 97116; 97162; 97165; 97530; 99285; A9579; G0378; G8978; G8979; G8987; G8988; G8989; Q9967